=== PATIENT | female | born 1945 | race Hispanic/Latino ===

== ENCOUNTER 2017-08-14 10:29 | Outpatient (CLI) | payer MEDICARE ==
--- NOTE | 2017-08-14 12:03 | RAD ---
THREE VIEWS LEFT HAND 08/14/17 COMPARISON: None. HISTORY: Left hand pain. FINDINGS: Three views left hand shows no evidence of acute fracture or dislocation. No degenerative changes ar e seen. No soft tissue swelling is present. IMPRESSION: Unremarkable exam. POS: [facility]
--- NOTE | 2017-08-14 12:10 | RAD ---
LEFT WRIST RADIOGRAPHS THREE VIEWS 08/14/17 PROVIDED CLINICAL HISTORY: Left wrist pain. FINDINGS: The osseous structures are osteopenic. There is no evidence for fracture or other acute osseous abno rmality. Alignment appears anatomic. Joint spaces appear preserved. Mild degenerative changes are se en at the first CMC and STT joints. IMPRESSION: Mild degenerative change. POS: [facility]
== END 2017-08-14 10:30 | disposition home or self-care (01) ==
LOC: RAD 10:29
DX: M79.642 Pain in left hand (principal); M25.532 Pain in left wrist

== ENCOUNTER 2018-12-22 10:09 | Outpatient (CLI) | payer MEDICARE ==
--- NOTE | 2019-01-20 16:25 | MMO ---
Bilateral MAMMO Bilat Screen [facility]. CLINICAL HISTORY: Patient is 73 years old and is seen for screening. The patient has no family history of breast cancer. The patient has no personal history of cancer. The patient has a history of right Cyst Aspiration. VIEWS: The views performed were: bilateral craniocaudal with tomosynthesis and bilateral mediolateral oblique with tomosynthesis. MAMMOGRAM FINDINGS: There are scattered fibroglandular densities. There are benign appearing calcifications seen in both breasts. There are also vascular calcifications. There are no suspicious masses, suspicious calcifications, or new areas of architectural distortion. IMPRESSION: THERE IS NO MAMMOGRAPHIC EVIDENCE OF MALIGNANCY. A ROUTINE FOLLOW-UP MAMMOGRAM IN 1 YEAR IS RECOMMENDED. THE RESULTS OF THIS EXAM WERE SENT TO THE PATIENT. ACR BI-RADS Category 2 - Benign finding MAMMOGRAPHY NOTE: 1. A negative mammogram report should not delay a biopsy if a dominant of clinically suspicious mass is present. 2. Approximately 10% to 15% of breast cancers are not detected by mammography. 3. Adenosis and dense breasts may obscure an underlying neoplasm.
== END 2018-12-22 10:10 | disposition home or self-care (01) ==
LOC: BICMAMMO 10:09
PROVIDERS: ATTEND Obstetrics & Gynecology
DX: Z12.31 Encounter for screening mammogram for malignant neoplasm of breast (principal)
CPT/HCPCS: 77063; 77067